=== PATIENT | female | born 1955 | race Caucasian/White ===

== ENCOUNTER → 2016-10-18 | Outpatient (CLI) | payer OTHER ==
--- NOTE | ~2016-10-18 | MR18 ---
[facility] A Service of [facility] RADIOLOGY TEXT RESULTS PATIENT: HANS YIP LOCATION: [facility] : 54 UNIT #: [id number] AGE: [address]: Summer Mayfield APRN SEX: F ORDER DR: [id number] [facility] [address] [place], [place] [address] [id number] O MR#: [id number] Acc #: [id number] NAME: HANS YIP : 1955 SEX: F STUDY DATE/TIME: 10/18/2016 18:01 UNIT: [facility] ROOM: STUDY DESCRIPTION: MR Brain Wo Contrast Attending Physician: Summer Mayfield A.P.R.N. Referring Physician: Summer Mayfield A.P.R.N. Ordering Physician: Summer Mayfield A.P.R.N. Primary Care Physician: Summer Mayfield A.P.R.N. MRI CENTER REPORT This report is preliminary unless electronic signature is present. EXAM Brain MRI without contrast, 10/18/2016 PROCEDURE Routine brain MRI without contrast. COMPARISON None. CLINICAL HISTORY Dizziness and blurred vision x3 months. Intermittent falling spells. FINDINGS The brain is structurally normal. Bone marrow signal is normal. There is no MR evidence of acute ischemia or other restricted diffusion. There is no hydrocephalus or extraaxial fluid collection. Normal flow voids are seen in the cerebral vessels. The extracranial soft tissues are unremarkable. There is no evidence of acute or chronic intracranial hemorrhage. Brain parenchymal signal is normal. IMPRESSION Normal unenhanced brain MRI. Dictated by... Ab Felpie M.D. THIS IS AN ELECTRONICALLY VERIFIED REPORT Ab Felipe M.D. at 10/21/2016 1:52 PM MARIA LUISA/[facility] A Service [facility] RADIOLOGY TEXT RESULTS PATIENT: HANS YIP LOCATION: [facility] : 54 UNIT #: [id number] AGE: [address]: Summer Mayfield APRN SEX: F ORDER DR: TD: 10/19/2016 21:30 JOB #: [id number] MRI CENTER REPORT Page 1 of 1 COPY
== END | disposition home or self-care (01) ==
LOC: CMRI 17:22
DX: R42 Dizziness and giddiness (principal); H53.8 Other visual disturbances
CPT/HCPCS: 70551